=== PATIENT | female | born 1970 | race Caucasian/White ===

== ENCOUNTER 2019-09-19 14:56 | Day surgery (SDC) | payer BC ==
[2019-09-16 15:34] VITALS: BMI 24.3
--- NOTE | 2019-09-18 14:28 | HP ---
Admitting History and Physical - Primary Care Physician PCP: Peri Moeller - Admission Chief Complaint: Left thigh melanoma History of Present Illness: 49 year old woman presents with H/O pigmented skin lesion left anterior thigh that she recently scratched off and continues to ooze and bleed and failed to heal. Shave biopsy revealed 2.1 mm thick ulcerated melanoma with positive margin. Clinical stage [id number] stage 2B History Source: Patient Limitations to Obtaining History: No Limitations - Past Medical History ...LMP: 09/01/19 ...: No Psych: Yes: Anxiety, Other (sleep disorder) - Smoking History Smoking history: Never smoked Have you smoked in the past 12 months: No - Alcohol/Substance Use Hx Alcohol Use: Yes (SOCIALLY) Home Medications - Allergies Allergies/Adverse Reactions: Allergies Allergy/AdvReac Type Severity Reaction Status Date / Time No Known Drug Allergies Allergy Verified 09/16/19 15:27 - Home Medications Home Medications: Ambulatory Orders Citalopram Hydrobromide [Celexa -] 20 mg PO DAILY 09/16/19 Trazodone HCl 150 mg PO HS 09/16/19 Family Medical History Family Hx Cancer: Father (bladder cancer) Physical Examination Constitutional: Yes: No Distress Extremities: Yes: Other (left mid anterior thigh is a 10mm eschar w/O satellite lesions no palpable adenopathy) Problem List - Problems (1) Melanoma Code(s): C43.9 - MALIGNANT MELANOMA OF SKIN, UNSPECIFIED Qualifiers: Melanoma location: lower extremity including hip Laterality: left Qualified Code(s): C43.72 - Malignant melanoma of left lower limb, including hip Assessment/Plan left thigh malignant wide excision sentenel node biopsy ,lymphoscintogram, reconstruction, possible dissection
[2019-09-19] MEDS ORDERED: ROCURONIUM BROMIDE 50 MG/5 ML SYRINGE ONE (15:47)
[2019-09-19] MEDS ORDERED: LIDOCAINE HCL/PF 2% SDV 5ML VIAL ONE (15:47)
[2019-09-19] MEDS ORDERED: fentaNYL CITRATE 250 MCG/5 ML VIAL ONE (15:47)
[2019-09-19] MEDS ORDERED: MIDAZOLAM HCL 2 MG/2 ML SINGLE DOSE VIAL ONE (15:47)
[2019-09-19] MEDS ORDERED: PROPOFOL 20 ML ONE ×2 (15:47→16:38)
[2019-09-19] MEDS ORDERED: ONDANSETRON 4 MG/2 ML VIAL IVPUSH PRN ×2 (15:57→19:11)
[2019-09-19] MEDS ORDERED: KETOROLAC TROMETHAMINE 30 MG/1 ML VIAL IVPUSH PRN (15:57)
[2019-09-19] MEDS ORDERED: DEXTROSE 5%-0.45% SALINE 1,000 ML IV SCH (16:00)
[2019-09-19] MEDS ORDERED: ceFAZolin SODIUM 1 GM VIAL ONE (16:25)
[2019-09-19] MEDS ORDERED: MINERAL OIL 25 ML OIL ONE (16:31)
[2019-09-19] MEDS ORDERED: ISOSULFAN BLUE 10 MG/ML VIAL SQ ONE (16:31)
[2019-09-19] MEDS ORDERED: DEXAMETHASONE SOD PHOSPHATE 4 MG/1 ML VIAL ONE (16:39)
[2019-09-19] MEDS ORDERED: ONDANSETRON 4 MG/2 ML VIAL ONE ×2 (16:39→18:47)
[2019-09-19] MEDS ORDERED: LIDOCAINE 1%/EPI 1:100000 (20 ML MULTI DOSE VIAL) ONE (16:55)
[2019-09-19] MEDS ORDERED: BUPIVACAINE HCL/EPINEPHRINE/PF 30 ML VIAL IJ ONE (16:56)
[2019-09-19] MEDS ORDERED: BUPIVACAINE 0.25% /EPI 1:200,000 10 ML VIAL INF ONE (17:48)
[2019-09-19] MEDS ORDERED: LIDOCAINE 1%/EPI 1:100000 (20 ML MULTI DOSE VIAL) INF ONE (17:48)
[2019-09-19] MEDS ORDERED: LACTATED RINGERS SOLUTION 1,000 ML IV SCH (19:15)
[2019-09-19 19:33] VITALS: TEMP 98.1
--- NOTE | 2019-09-19 19:37 | OP ---
Operative Note - Note: Operative Date: 09/19/19 Pre-Operative Diagnosis: melanoma Operation: flap reconstruction of left thigh melanoma wound, primary closure of left groin wound Post-Operative Diagnosis: Same as Pre-op Surgeon: Rosalio Spencer Operative Report Dictated: Yes
--- NOTE | 2019-09-19 20:06 | OP ---
DATE OF OPERATION: 09/19/2019 TITLE OF PROCEDURE: 1. Left thigh axial fasciocutaneous flap reconstruction of defect from malignant melanoma excision. 2. Complex closure of left groin wound from left groin sentinel lymph node dissection. That is a 4-cm closure. ATTENDING SURGEON: Rosalio Martines M.D. SUPERVISOR COVERING [employer] LINING: No assistant front desk manager. The procedure is performed in combination with a left thigh wide local excision of malignant melanoma by Dr. Peri Moeller, and a left groin sentinel lymph node biopsy by Dr. Peri Moeller. DESCRIPTION OF PROCEDURE: Patient is positioned, prepped and draped by Dr. Moeller and his team. I am brought into the room after the completion of the sentinel lymph node biopsy and wide local excision. There is a 7-cm diameter defect of skin, subcutaneous tissue down to fascia on the anterior medial left thigh and an open groin wound. As planned preoperatively, a fasciocutaneous flap based on the Doppler first branch of the femoral artery is planned. The flap is based superolaterally. The defect is first addressed by meticulous hemostasis, and the flap is elevated subfascially to the pedicle. The pedicle as further mentioned in preserved, and the flap is rotated into the defect and set without tension. The flap is first inset with a series of fascial 3-0 Vicryl sutures into the defect. The distal tip of the flap is trimmed and is bleeding with bright red healthy blood. The dermis is then inset with a series of buried deep dermal 3-0 Vicryl suture and the skin is inset with a running subcuticular 3-0 Monocryl suture. The donor site is able to be closed primarily with a series of interrupted buried fascial 3-0 Vicryl suture followed by a series of interrupted buried deep dermal 3-0 Monocryl suture followed by a running subcuticular 3-0 Monocryl suture. The flap is pink and viable at the end of the procedure. Attention is then directed toward the left groin wound from the left groin sentinel lymph node biopsy. The fascia is closed with the series of interrupted 3-0 Vicryl suture. Skin is then closed after with a series of interrupted buried deep dermal 3-0 Monocryl suture followed by a running subcuticular 3-0 Monocryl suture in a 4-cm length wound. The wounds are dressed with Steri-Strips. It should be noted that the flap was inset over a size 10 flat LUCIA drain, which was secured with a 2-0 silk drain suture, brought out through the pivot point of the flap. Drain is placed to bulb suction. The patient awoke from anesthesia having tolerated procedure well and is transferred to recovery without complications. ROSALIO MARTINES M.D. DAMARIS/[id number]
[2019-09-19 20:18] VITALS: BP 110/52
[2019-09-19 20:20] VITALS: PULSE 60
--- NOTE | 2019-09-24 17:00 | PATH ---
Surgical Pathology Report Patient Name: LIVIER FOSS [facility]. Rec. #: [id number] /Age/Gender: 1970 (Age: 49) / F Account: [id number] Location: REPLACED BY [facility] Taken: 09/19/2019 Received: 09/19/2019 Reported: 09/24/2019 Physicians: Peri Moeller M.D. Specimen(s) Received A: LEFT INGUINAL SENTINEL NODES B: LEFT ANDRE-ILIAC SENTINEL NODE C: LEFT ANTERIOR THIGH RADICAL WIDE EXCISION Clinical History Left thigh melanoma Final Diagnosis A. INGUINAL SENTINEL NODES, LEFT, EXCISION: THREE LYMPH NODES NEGATIVE FOR MELANOMA ON H&E AND CONFIRMED BY MELAN-A IMMUNOHISTOCHEMICAL STAIN (0/3). B. ANDRE-ILIAC SENTINEL NODE, LEFT, EXCISION: ONE LYMPH NODE NEGATIVE FOR MELANOMA ON H&E AND CONFIRMED BY MELAN-A IMMUNOHISTOCHEMICAL STAIN (0/1). C. ANTERIOR THIGH, LEFT, RADICAL WIDE EXCISION: BENIGN SKIN AND UNDERLYING SUBCUTANEOUS TISSUE WITH SERUM CRUST AND CHANGES OF PRIOR BIOPSY. NO RESIDUAL MELANOMA IDENTIFIED. SEE COMMENT. Comment: Part C, Immunohistochemical stain performed at [place], [place] ([id number]) and interpreted at [facility] for Melan-A utilized to evaluate this case. Prior history of melanoma noted. Positive and negative controls (internal if applicable) show appropriate results. Electronically Signed Anne-Marie Abernathy M.D. Gross Description A. Received in formalin labeled "left inguinal sentinel nodes," are 3 lymph nodes with attached fat ranging from 0.7 x 0.5 x 0.3 cm to 1.9 x 1.7 x 0.6 cm. The specimen is entirely submitted in 3 cassettes as follows: 1- two whole lymph nodes; 2-3-one bisected lymph node. B. Received in formalin labeled "left andre-iliac sentinel node," is a 2.5 x 1.1 x 0.3 cm lymph node with attached fat. The specimen is submitted in toto in one cassette. C. Received in formalin labeled "left anterior thigh radical wide excision of melanoma," is a 5.6 x 5.2 cm morales, ovoid portion of morales skin excised to depth of 3.1 cm. There is a short suture marking the superior aspect and a long suture marking the lateral aspect of the specimen, per the surgeon. The epidermal surface displays a 1.3 x 1.0 cm morales, focally crusted lesion. The lesion is 1.8 cm from the lateral margin, 2.0 cm from the superior margin, 2.1 cm from the medial margin and 2.2 cm from the inferior margin. The specimen is inked as follows: Superior blue; inferior green; lateral red; medial yellow; deep black. Cover Cutter sections are submitted in 8 cassettes as follows: [id number] submitted lesion (each with deep margin); 5-superior margin; 6-inferior margin; 7-lateral margin; 8-medial margin. 09/22/2019 saudi09/22/2019
== END 2019-09-19 20:10 | disposition home or self-care (01) ==
LOC: FASU 14:56
PROVIDERS: ATTEND Surgery Surgical Oncology
PROC: 0HRAX74 Replacement of Inguinal Skin with Autologous Tissue Substitute, Partial Thickness, External Approach (ICD-10-PCS; 2019-09-19)
PROC: 07BJ0ZX Excision of Left Inguinal Lymphatic, Open Approach, Diagnostic (ICD-10-PCS; principal; 2019-09-19 16:56)
PROC: 0JXP0ZC Transfer Left Lower Leg Subcutaneous Tissue and Fascia with Skin, Subcutaneous Tissue and Fascia, Open Approach (ICD-10-PCS; 2019-09-19 16:56)
DX: C43.72 Malignant melanoma of left lower limb, including hip (principal); R59.0 Localized enlarged lymph nodes
CPT/HCPCS: 78195-TC; 84703; 88305-TC; 88307-TC; 94760; A9541

== ENCOUNTER 2020-12-27 06:24 | Day surgery (SDC) | payer SELFPAY ==
[2020-12-22 14:20] VITALS: BMI 22.5
[2020-12-27] MEDS ORDERED: LIDOCAINE HCL 1%, 10 MG/ML (20ML VIAL) ONE ×2 (07:25→08:58)
[2020-12-27] MEDS ORDERED: BACITRACIN 15 GM TUBE TOPICAL OINTMENT ONE (07:25)
[2020-12-27] MEDS ORDERED: EPINEPHrine/PF 1 MG/1 ML (1:1,000) AMPULE ONE ×2 (07:25→08:58)
[2020-12-27] MEDS ORDERED: MIDAZOLAM HCL 2 MG/2 ML SINGLE DOSE VIAL ONE ×2 (08:08)
[2020-12-27] MEDS ORDERED: ROCURONIUM BROMIDE 50 MG/5 ML SYRINGE ONE (08:09)
[2020-12-27] MEDS ORDERED: PROPOFOL 20 ML ONE ×3 (08:09→09:56)
[2020-12-27] MEDS ORDERED: SUCCINYLCHOLINE CHLORIDE 200 MG/10 ML SYRINGE ONE (08:09)
[2020-12-27] MEDS ORDERED: ceFAZolin SODIUM 1 GM VIAL ONE (08:31)
[2020-12-27] MEDS ORDERED: LIDOCAINE HCL 2% JELLY (5 ML/TUBE) ONE (09:58)
[2020-12-27] MEDS ORDERED: ONDANSETRON 4 MG/2 ML VIAL ONE (09:58)
[2020-12-27] MEDS ORDERED: DEXAMETHASONE SOD PHOSPHATE 4 MG/1 ML VIAL ONE (09:58)
[2020-12-27] MEDS ORDERED: LIDOCAINE HCL/PF 2% SDV 5ML VIAL ONE (09:58)
[2020-12-27] MEDS ORDERED: ONDANSETRON 4 MG/2 ML VIAL IVPUSH PRN (11:30)
[2020-12-27] MEDS ORDERED: PROMETHAZINE HCL 25 MG/1 ML VIAL IVPB PRN (11:30)
[2020-12-27] MEDS ORDERED: oxyCODONE HCL 5 MG TABLET PO PRN ×3 (11:30→11:37)
[2020-12-27] MEDS ORDERED: LACTATED RINGERS SOLUTION 1,000 ML IV SCH ×2 (11:30→11:45)
[2020-12-27] MEDS ORDERED: ONDANSETRON 4 MG/2 ML VIAL IVPB PRN (11:37)
[2020-12-27] MEDS ORDERED: oxyCODONE HCL 5 MG TABLET ONE (12:33)
[2020-12-27 12:45] VITALS: TEMP 97.8
[2020-12-27 14:08] VITALS: BP 95/51; PULSE 80
== END 2020-12-27 13:55 | disposition home or self-care (01) ==
LOC: FASU 06:24
PROVIDERS: ATTEND Plastic Surgery
CPT/HCPCS: 81025; 94760